=== PATIENT | female | born 1955 | race Caucasian/White ===

== ENCOUNTER 2024-10-18 11:01 | Emergency (ER) | payer MEDICARE, OTHER ==
[~2024-10-18] VITALS: Ht 162.6 cm; Wt 76.7 kg
[~2024-10-18 11:01] MED LIST: CEPHALEXIN500 M1 PO; INDERAL LA80 MG PO; LEVOTHYROXINE125 MCG PO; PAROXETINE HCL20 MG PO; PAXIL20 MG PO; PROPRANOLOL HCL80 MG PO
[2024-10-18] MEDS ORDERED: IBLOOD GLUCOSE TEST STRIP 1 EA TEST XX ONE (11:30)
[2024-10-18] MEDS ORDERED: PREMARIN30 GM PV (11:30)
[2024-10-18 11:39] LABS: BASOPHILS 0.7 % (0.1-1.2); EOSINOPHILS 1.5 % (0.7-5.8); LYMPHOCYTES 27.8 % (19.3-51.7); MCH 32.6 PG (25.6-32.2); MCHC 34.9 g/dL (32.2-35.5); MCV 93.3 fL (79.4-94.8); MONOCYTES 5.2 % (4.7-12.5); NEUTROPHILS 64.5 % (34.0-71.1); RBC 4.36 M/uL (3.93-5.22)
[2024-10-18 12:03] LABS: ALT (SGPT) 23.0 U/L (14-59); AST (SGOT) 18.0 U/L (15-37); GLOMERULAR FILTRATION RATE,EST 94.0 mL/min (>60); PROTEIN, TOTAL 7.4 g/dL (6.4-8.2); UREA NITROGEN 16.0 mg/dL (7-18)
[2024-10-18] MEDS ORDERED: MECLIZINE HCL 25 MG TAB PO ONE (12:15)
[2024-10-18] MEDS ORDERED: ONDANSETRON 4 MG TAB ODT SL ONE (12:15)
[2024-10-18] MEDS ORDERED: predniSONE 20 MG TAB PO ONE (12:45)
[2024-10-18] MEDS ORDERED: MECLIZINE HCL25 MG PO (15:27)
[2024-10-18] MEDS ORDERED: ONDANSETRON ODT4 MG PO (15:27)
[2024-10-18 15:35] VITALS: BP 144/77
--- NOTE | 2024-10-19 17:50 | EKG ---
[facility] [address] [facility] [place], [place] [address] Signed Normal sinus rhythm Normal ECG No previous ECGs available Confirmed by Jama Stanley DO ([id number]) on 10/19/2024 5:50:00 PM Electronically Signed By: JAMA STANLEY DO 10/19/24 1750 PATIENT NAME: MARILU VAZQUEZ Electrocardiogram DATE OF : 53 PHYSICIAN: JAMA STANLEY DO REPORT #: [id number] REPORT IS CONFIDENTIAL AND NOT TO BE RELEASED WITHOUT AUTHORIZATION
== END 2024-10-18 15:34 | disposition home or self-care (01) ==
LOC: ED 11:01
PROVIDERS: Emergency Medicine
DX: R42 Dizziness and giddiness (principal); R11.0 Nausea; I10 Essential (primary) hypertension; E03.9 Hypothyroidism, unspecified; Z79.890 Hormone replacement therapy; Z79.899 Other long term (current) drug therapy
CPT/HCPCS: 36415; 80053; 83735; 84484; 85025; 93005; 93010; 99284; A9270; J7512